=== PATIENT | male | born 1970 | race African-American/Black ===

== ENCOUNTER 2024-04-20 14:59 | Emergency (ER) | payer OTHER ==
[~2024-04-20] VITALS: Ht 190.5 cm; Wt 112.0 kg
[2024-04-20 15:02] VITALS: O2SAT 100
[2024-04-20 15:22] VITALS: BP 167/105; PULSE 109; RESP 18; TEMP 98.4
[2024-04-20] MEDS: ONDANSETRON HCL 4MG/2ML INJ IV STA (15:22)
[2024-04-20 16:01] LABS: DIFFERENTIAL COMMENT 0; EOSINOPHILS % 1.1 % (0.0-5.0); HEMATOCRIT. 35.3 % (42.0-52.0); HEMOGLOBIN. 11.7 g/dL (14.0-18.0); LYMPHOCYTES % 30.3 % (20.0-50.0); MEAN CORPUSCULAR HEMOGLOBIN 23.8 pg (28.0-32.0); MEAN CORPUSCULAR HGB CONC 33.1 g/dL (31.0-37.0); MEAN PLATELET VOLUME 7.1 fl (7.4-10.4); MONOCYTES % 12.3 % (2.0-8.0); NEUTROPHILS % 55.3 % (40.0-76.0); PLATELET 246 x1000/uL (130-400); RED BLOOD CELL COUNT 4.89 mill/uL (4.7-6.1); RED CELL DISTRIBUTION WIDTH 15.1 % (11.6-14.6); WHITE BLOOD COUNT 2.8 x1000/uL (4.5-11.0)
[2024-04-20 16:07] LABS: CHLORIDE 103 mEq/L (98-107); POTASSIUM 3.3 mEq/L (3.5-5.1); SODIUM 139 mEq/L (136-145)
[2024-04-20 16:08] LABS: CARBON DIOXIDE 29 mEq/L (21-32)
[2024-04-20 16:09] LABS: CALCIUM 9.4 mg/dL (8.7-10.4)
[2024-04-20 16:13] LABS: CREATININE 1.3 mg/dL (0.6-1.3); GLUCOSE 189 mg/dL (70-105)
[2024-04-20 16:14] LABS: TROPONIN I HIGH SENSITIVITY 5 ng/L (3.0-53); UREA NITROGEN BLOOD 14 mg/dL (9-23)
[2024-04-20] MEDS: SODIUM CHLORIDE 0.9% 1,000 ML IV ONE (16:27)
[2024-04-20] MEDS: LORAZEPAM 2MG/ML INJ IV ONE (16:27)
== END 2024-04-20 18:10 | disposition home or self-care (01) ==
LOC: ER 14:59
DX: R00.2 Palpitations (principal); F12.90 Cannabis use, unspecified, uncomplicated; E11.9 Type 2 diabetes mellitus without complications; I10 Essential (primary) hypertension
CPT/HCPCS: 99285; 96374; 71045; 96361; 96375; 80048; 85025; 84484; 36415; 93005; J2060; J2405; J7030